=== PATIENT | female | born 1945 | race Hispanic/Latino ===

== ENCOUNTER 2018-01-22 18:43 | Observation (INO) | payer MEDICARE ==
[~2018-01-22] VITALS: Ht 160 cm; Wt 85.3 kg
[2018-01-22] MEDS ORDERED: KETOROLAC TROMETHAMINE 30MG/ML ONE (19:25)
[2018-01-22] MEDS ORDERED: HYOSCYAMINE SULFATE 0.125 MG TAB.SUBL SL ONE (19:26)
[2018-01-22 19:36] LABS: BASOPHILS % (AUTO) 0.6 % (0.0-5.0); HEMATOCRIT 39.8 % (36-48); MEAN CORPUSCULAR VOLUME 85.2 fL (79-99); MONOCYTES % (AUTO) 7.7 % (3.0-13.0); NEUTROPHILS % (AUTO) 76.7 % (40.0-77.0); PLATELET COUNT (AUTO) 326 K/uL (130-400); RED BLOOD CELL COUNT(AUTO) 4.67 MIL/uL (4.00-5.50); WHITE BLOOD COUNT (AUTO) 14.6 K/uL (4.8-10.8)
[2018-01-22 19:37] LABS: APPEARANCE,URINE Clear (CLEAR); BILIRUBIN,URINE Negative (NEGATIVE); COLOR,URINE Yellow (YELLOW); GLUCOSE, URINE (UA) Negative (NEGATIVE); KETONES,URINE Negative (NEGATIVE); LEUKOCYTE ESTERASE ,URINE Trace (NEGATIVE); NITRATE,URINE Negative (NEGATIVE); OCCULT BLOOD,URINE Negative (NEGATIVE); PROTEIN,URINE Negative (NEGATIVE); UROBILINOGEN,URINE 0.2 mg/dL (0.2-1.0)
[2018-01-22 19:47] LABS: CREATININE 0.8 mg/dL (0.5-1.5); POTASSIUM 3.4 mmol/L (3.5-5.1)
[2018-01-22 19:51] LABS: BACTERIA,URINE Rare /HPF (None Seen); RBC,URINE None Seen /HPF (0-1); SQUAMOUS EPITHELIAL CELL,UR 0-2 /HPF (0-2); WBC,URINE 0-1 /HPF (0-1)
[2018-01-22 19:51] LABS: ALBUMIN 3.5 g/dL (3.5-5.0); BILIRUBIN,TOTAL 1.1 mg/dL (0.2-1.0); TOTAL PROTEIN, SERUM 7.1 g/dL (6.0-8.3)
[2018-01-22] MEDS ORDERED: MORPHINE SULFATE 4 MG/1ML SYG ONE (21:53)
[2018-01-22] MEDS ORDERED: SODIUM CHLORIDE 0.9% 1000ML 1,000 ML IV ONE (21:53)
[2018-01-22] MEDS ORDERED: ONDANSETRON HCL MDV 20ML 2 MG/ML VIAL ONE (21:53)
[2018-01-22] MEDS ORDERED: FAMOTIDINE/PF 20 MG/2 ML VIAL IV ONE (21:54)
[2018-01-22] MEDS ORDERED: FAMOTIDINE/PF 20 MG/2 ML VIAL IV SCH (22:00)
[2018-01-22] MEDS ORDERED: MORPHINE SULFATE 4 MG/1ML SYG IVP PRN (22:00)
[2018-01-22] MEDS ORDERED: SODIUM CHLORIDE 0.9% 1000ML 1,000 ML IV SCH (22:00)
== END 2018-01-22 23:35 | disposition left against medical advice (07) ==
LOC: EDH 18:43 → EDHIP 21:48 → 3DH 22:23 → EDHIP 23:23
PROVIDERS: ADMIT Internal Medicine; ATTEND Internal Medicine
DX: R10.11 Right upper quadrant pain (principal); E11.9 Type 2 diabetes mellitus without complications; H40.9 Unspecified glaucoma; E78.5 Hyperlipidemia, unspecified; I10 Essential (primary) hypertension; E66.9 Obesity, unspecified; Z88.2 Allergy status to sulfonamides
CPT/HCPCS: 36415; 71045; 74176; 76705; 80053; 81001; 83690; 84478; 85025; 99285; G0378 ×2; J1885; J2270; J3490; J7030

== ENCOUNTER 2018-06-25 06:08 | Day surgery (SDC) | payer MEDICARE ==
[~2018-06-25] VITALS: Ht 154.9 cm; Wt 86.9 kg
[~2018-06-25 06:08] MED LIST: SODIUM CHLORIDE 0.9% 1000ML 1,000 ML IV ONE
[2018-06-25 06:47] VITALS: BP 150/83
[2018-06-25] MEDS ORDERED: LORA0.5T2 PO (07:26)
[2018-06-25] MEDS ORDERED: ERGO2000 PO (07:26)
[2018-06-25] MEDS ORDERED: LOVA20TA3 PO (07:26)
[2018-06-25] MEDS ORDERED: PROPOFOL 10 MG/ML 20ML VIAL IV ONE ×2 (07:26→08:06)
[2018-06-25] MEDS ORDERED: BENA20TA10 PO (07:26)
[2018-06-25] MEDS ORDERED: GLYCOPYRROLATE 0.2 MG/ML 5 ML VIAL ONE (08:06)
[2018-06-25 08:12] VITALS: BP 90/36
[2018-06-25 08:17] VITALS: BP 93/47
[2018-06-25 08:22] VITALS: BP 112/52
[2018-06-25 08:28] VITALS: BP 139/68
== END 2018-06-25 09:01 | disposition home or self-care (01) ==
LOC: DAH 06:08
PROVIDERS: ATTEND Internal Medicine Gastroenterology
DX: Z12.11 Encounter for screening for malignant neoplasm of colon (principal); Z86.010 Personal history of colon polyps; K31.89 Other diseases of stomach and duodenum; K22.8 Other specified diseases of esophagus; K57.30 Diverticulosis of large intestine without perforation or abscess without bleeding; K56.2 Volvulus; K63.5 Polyp of colon; Z68.34 Body mass index [BMI] 34.0-34.9, adult; Z98.890 Other specified postprocedural states; F41.9 Anxiety disorder, unspecified; M19.90 Unspecified osteoarthritis, unspecified site; K76.0 Fatty (change of) liver, not elsewhere classified; E78.5 Hyperlipidemia, unspecified; I10 Essential (primary) hypertension; E66.9 Obesity, unspecified; E55.9 Vitamin D deficiency, unspecified; Z80.0 Family history of malignant neoplasm of digestive organs; H40.9 Unspecified glaucoma
CPT/HCPCS: 43239; 45380; 45385; 82948 ×2; 88305; 88342; 93005; A4606; J2704 ×2; J3490; J7030; 43235

== ENCOUNTER 2023-04-29 16:31 | Emergency (ER) | payer MEDICARE ==
[~2023-04-29] VITALS: Ht 160 cm; Wt 88.0 kg
[~2023-04-29 16:31] MED LIST changes: +BENA-8 PO; +ERGO2000 PO; +LORA0.5T2 PO; +LOVA20TA3 PO; -SODIUM CHLORIDE 0.9% 1000ML 1,000 ML IV ONE
[2023-04-29] MEDS ORDERED: IBUP-2070 PO (19:15)
[2023-04-29] MEDS ORDERED: FAMO20TA8 PO (19:15)
[2023-04-29 19:17] VITALS: BP 101/62; PULSE 78; RESP 16; O2SAT 98
[2023-04-29] MEDS ORDERED: KETOROLAC 30MG VIAL (30MG/ML) IM ONE (19:30)
[2023-04-29] MEDS ORDERED: MORPHINE 2 MG SYG IM ONE (19:30)
== END 2023-04-29 19:35 | disposition home or self-care (01) ==
LOC: EDH 16:31
DX: S42.291A Other displaced fracture of upper end of right humerus, initial encounter for closed fracture (principal); E11.9 Type 2 diabetes mellitus without complications; I10 Essential (primary) hypertension; Z79.899 Other long term (current) drug therapy; Z88.5 Allergy status to narcotic agent; W18.39XA Other fall on same level, initial encounter; Y93.89 Activity, other specified; Y92.89 Other specified places as the place of occurrence of the external cause; Y99.8 Other external cause status
CPT/HCPCS: 99285; 70450; 71045; 73030; 72125; 72131; 72128; 96372 ×2; J2270; J1885